=== PATIENT | male | born 1965 | race Caucasian/White ===

== ENCOUNTER 2021-05-18 12:59 | Outpatient (CLI) | payer BC ==
[2021-05-18 14:52] LABS: Bilirubin Neg (Negative); Blood, Urine Negative (Negative); Clarity Clear (Clear); Glucose, Urine (Dipstick) 100 mg/dL (Negative); Ketone, Urine Negative (Negative); Leukocyte Negative (Negative); Nitrite Negative (Negative); Protein, Urine (Dipstick) 30 mg/dl (Neg-Trace); Urobilinogen Normal mg/dL (Less than 2)
[2021-05-18 15:01] LABS: Bacteria/HPF Rare-Few HPF (None Seen); RBC/HPF 0-3 HPF (0-3); Squamous Epithelial 0-3 HPF (0-3); WBC/HPF 0-3 HPF (0-3)
[2021-05-18 15:07] LABS: INR-International Normal Ratio 0.9; Prothrombin Time 10.5 sec (9.5-12.1)
[2021-05-18 15:13] LABS: Anion Gap 15 mmol/L (10-20); BUN (Urea Nitrogen) 11 mg/dL (8.4-25.7); Calc. Creatinine Clearance 0 mL/min (70-130); Carbon Dioxide 26 mmol/L (22-29); Chloride 103 mmol/L (98-107); Glucose 125 mg/dL (70-105); Potassium 4.8 mmol/L (3.5-5.1); Sodium 139 mmol/L (136-145)
[2021-05-18 15:36] LABS: #Basophils 0.1 10x3/uL (0.0-0.2); #Eosinphils 0.4 10x3/uL (0.0-0.5); #Monocytes 0.6 10x3/uL (0.0-1.1); #Neutrophils 4.1 10x3/uL (1.5-8.4); %Basophils 0.9 % (0.0-2.0); %Lymphocytes 31.4 % (18.0-47.0); %Monocytes 8.3 % (0.0-10.0); %Neutrophils 53.9 % (40.0-75.0); Hemoglobin 15.1 g/dL (13.5-17.5); Mean Corpuscular HGB CONC 33.3 g/dL (32.0-36.0); Mean Corpuscular Hemoglobin 30.4 pg (27.0-33.0); Mean Corpuscular Volume 91.3 fl (81.2-95.1); Mean Platelet Volume 9.7 fl (7.4-10.4); Platelet Count 244 10x3/uL (150-450); RBC Distribution Width 11.5 % (11.5-14.5); Red Blood Cell (RBC) Count 4.96 10x6/uL (4.32-5.72); White Blood Cell (WBC) Count 7.6 10x3/uL (3.5-10.5)
[2021-05-19 00:37] LABS: SARS-CoV-2 PCR by NAA Not Detected (NotDetected)
== END 2021-05-18 13:00 | disposition home or self-care (01) ==
LOC: LABBT 12:59
PROVIDERS: ATTEND Orthopaedic Surgery
DX: Z01.818 Encounter for other preprocedural examination (principal); M17.0 Bilateral primary osteoarthritis of knee; Z20.822 Contact with and (suspected) exposure to COVID-19
CPT/HCPCS: 80048; 81001; 85025; 85610; 86850; 86900; 86901; 87081; 93005; 93010; U0003; U0005

== ENCOUNTER 2021-05-23 08:43 | Day surgery (SDC) | payer BC ==
[2021-05-18 14:52] LABS: Bilirubin Neg (Negative); Blood, Urine Negative (Negative); Clarity Clear (Clear); Glucose, Urine (Dipstick) 100 mg/dL (Negative); Ketone, Urine Negative (Negative); Leukocyte Negative (Negative); Nitrite Negative (Negative); Protein, Urine (Dipstick) 30 mg/dl (Neg-Trace); Urobilinogen Normal mg/dL (Less than 2)
[2021-05-18 15:01] LABS: Bacteria/HPF Rare-Few HPF (None Seen); RBC/HPF 0-3 HPF (0-3); Squamous Epithelial 0-3 HPF (0-3); WBC/HPF 0-3 HPF (0-3)
[2021-05-18 15:07] LABS: INR-International Normal Ratio 0.9; Prothrombin Time 10.5 sec (9.5-12.1)
[2021-05-18 15:13] LABS: Anion Gap 15 mmol/L (10-20); BUN (Urea Nitrogen) 11 mg/dL (8.4-25.7); Calc. Creatinine Clearance 0 mL/min (70-130); Carbon Dioxide 26 mmol/L (22-29); Chloride 103 mmol/L (98-107); Glucose 125 mg/dL (70-105); Potassium 4.8 mmol/L (3.5-5.1); Sodium 139 mmol/L (136-145)
[2021-05-18 15:36] LABS: #Basophils 0.1 10x3/uL (0.0-0.2); #Eosinphils 0.4 10x3/uL (0.0-0.5); #Monocytes 0.6 10x3/uL (0.0-1.1); #Neutrophils 4.1 10x3/uL (1.5-8.4); %Basophils 0.9 % (0.0-2.0); %Lymphocytes 31.4 % (18.0-47.0); %Monocytes 8.3 % (0.0-10.0); %Neutrophils 53.9 % (40.0-75.0); Hemoglobin 15.1 g/dL (13.5-17.5); Mean Corpuscular HGB CONC 33.3 g/dL (32.0-36.0); Mean Corpuscular Hemoglobin 30.4 pg (27.0-33.0); Mean Corpuscular Volume 91.3 fl (81.2-95.1); Mean Platelet Volume 9.7 fl (7.4-10.4); Platelet Count 244 10x3/uL (150-450); RBC Distribution Width 11.5 % (11.5-14.5); Red Blood Cell (RBC) Count 4.96 10x6/uL (4.32-5.72); White Blood Cell (WBC) Count 7.6 10x3/uL (3.5-10.5)
[2021-05-19 00:37] LABS: SARS-CoV-2 PCR by NAA Not Detected (NotDetected)
[2021-05-20 11:39] VITALS: BMI 31.0
[2021-05-23] MEDS ORDERED: Vancomycin 1.5 GRAM/300 ML BAG 1.5 GM in Premix Bag 1 BAG IVPB SCH ×2 (09:15→22:00)
[2021-05-23] MEDS ORDERED: Sodium Chloride 0.9% 100 ML ONE (09:21)
[2021-05-23] MEDS ORDERED: Tranexamic Acid 1,000 MG/10 ML VIAL ONE ×2 (09:21→13:46)
[2021-05-23] MEDS ORDERED: Fentanyl 100 MCG/2 ML VIAL ONE ×4 (11:05→16:04)
[2021-05-23] MEDS ORDERED: Midazolam HCl 2 mg/2 ml Vial ONE (11:05)
[2021-05-23] MEDS ORDERED: Bupivacaine PF 0.5% 30 ML VIAL ONE (11:24)
[2021-05-23] MEDS ORDERED: Lidocaine 1% (PF) 30 ML VIAL ONE (11:24)
[2021-05-23] MEDS ORDERED: methylPREDNISolone Acetate 40 mg/ml Vial ONE (11:24)
[2021-05-23] MEDS ORDERED: Rocuronium Bromide 10 MG/ML (10ML VIAL) ONE (11:37)
[2021-05-23] MEDS ORDERED: Ondansetron PF 4 MG/2 ML Vial ONE (11:37)
[2021-05-23] MEDS ORDERED: Ketorolac Tromethamine 30 MG/ML VIAL ONE (11:37)
[2021-05-23] MEDS ORDERED: PROPOFOL 200 MG/20 ML VIAL ONE (11:37)
[2021-05-23] MEDS ORDERED: Ropivacaine 2% HCl/PF (20 MG/10 ML VIAL) ONE (11:37)
[2021-05-23] MEDS ORDERED: Bupivacaine HCl 0.5%/Epinephrine 1:200,000/PF 30 ml Vial ONE (11:37)
[2021-05-23] MEDS ORDERED: Fentanyl 100 MCG/2 ML VIAL SLOW IVP PRN (13:11)
[2021-05-23] MEDS ORDERED: HYDROcodone/Acetaminophen 10/325 mg Tablet PO PRN (13:15)
[2021-05-23] MEDS ORDERED: traMADol HCl 50 MG TAB PO PRN ×2 (13:15)
[2021-05-23] MEDS ORDERED: Promethazine HCl 25 MG/ML VIAL IM PRN ×3 (13:15→13:44)
[2021-05-23] MEDS ORDERED: Ondansetron PF 4 MG/2 ML Vial IVP PRN ×2 (13:15→13:32)
[2021-05-23] MEDS ORDERED: Zolpidem Tartrate 5 MG TAB PO PRN ×2 (13:15→13:32)
[2021-05-23] MEDS ORDERED: Ropivacaine HCl/PF 250 ML in Premix Bag 1 BAG NERVE BLCK SCH (13:15)
[2021-05-23] MEDS ORDERED: Acetaminophen 325 MG TAB PO PRN (13:32)
[2021-05-23] MEDS ORDERED: diphenhydrAMINE 25 MG CAP PO PRN (13:32)
[2021-05-23] MEDS ORDERED: Promethazine HCl 25 MG/ML VIAL IVPB PRN (13:44)
[2021-05-23] MEDS ORDERED: Ondansetron HCl/PF 4 MG/2 ML Vial IVP PRN (13:44)
[2021-05-23] MEDS ORDERED: Tranexamic Acid 1,000 MG in Sodium Chloride 0.9% 100 ML IVPB SCH (13:45)
[2021-05-23] MEDS: Sodium Chloride 0.9% 1,000 ML IV SCH ×2 (17:37→23:03)
[2021-05-23] MEDS ORDERED: CEFAZOLIN 2 GM in Premix Bag 1 BAG IVPB SCH (18:00)
[2021-05-23] MEDS: Ketorolac Tromethamine 30 MG/ML VIAL IVP SCH ×2 (18:27→23:32)
[2021-05-23] MEDS: Atorvastatin Calcium 20 MG TAB PO SCH (20:23)
[2021-05-23] MEDS: Aspirin 81 mg Enteric Coated Tablet PO SCH (20:23)
[2021-05-23] MEDS: CEFAZOLIN 2 GM in Premix Bag 1 BAG IVPB SCH (20:24)
[2021-05-23] MEDS: HYDROcodone/Acetaminophen 10/325 mg Tablet PO PRN (22:12)
[2021-05-24] MEDS: Ketorolac Tromethamine 30 MG/ML VIAL IVP SCH ×4 (05:30→23:10)
[2021-05-24] MEDS: CEFAZOLIN 2 GM in Premix Bag 1 BAG IVPB SCH (05:30)
[2021-05-24 05:53] LABS: Hemoglobin 12.3 g/dL (14.0-18.0); Mean Corpuscular Hemoglobin 31.9 pg (27.0-31.0); Mean Corpuscular Volume 93.7 fL (78.0-98.0); Mean Platelet Volume 7.3 fL (7.4-10.4); Platelet Count 222 thou/uL (130-400); RBC Distribution Width 10.8 % (11.5-14.5); Red Blood Cell (RBC) Count 3.85 mill/uL (4.70-6.10); White Blood Cell (WBC) Count 11.6 thou/uL (4.8-10.8)
[2021-05-24] MEDS: Aspirin 81 mg Enteric Coated Tablet PO SCH ×2 (08:05→21:01)
[2021-05-24] MEDS: Losartan 25 MG TAB PO SCH (08:05)
[2021-05-24] MEDS: Multivitamin W/ Minerals 1 TAB PO SCH (08:05)
[2021-05-24] MEDS: Senokot S 8.6-50 MG TAB PO SCH ×2 (08:05→21:01)
[2021-05-24] MEDS: Ferrous Gluconate 324 MG TAB PO SCH ×2 (08:05→17:07)
[2021-05-24] MEDS: Sodium Chloride 0.9% 1,000 ML IV SCH ×2 (08:06→22:16)
[2021-05-24] MEDS: glipiZIDE 5 MG TAB PO SCH (08:07)
[2021-05-24] MEDS: Atorvastatin Calcium 20 MG TAB PO SCH (21:01)
[2021-05-24] MEDS: HYDROcodone/Acetaminophen 10/325 mg Tablet PO PRN (23:58)
[2021-05-25] MEDS: Sodium Chloride 0.9% 1,000 ML IV SCH (03:40)
[2021-05-25] MEDS: HYDROcodone/Acetaminophen 10/325 mg Tablet PO PRN ×2 (03:41→08:59)
[2021-05-25] MEDS: Ketorolac Tromethamine 30 MG/ML VIAL IVP SCH (06:20)
[2021-05-25 06:43] LABS: Mean Corpuscular HGB CONC 35.4 g/dL (32.0-36.0); Mean Corpuscular Hemoglobin 33.5 pg (27.0-31.0); Mean Corpuscular Volume 94.6 fL (78.0-98.0); Mean Platelet Volume 7.5 fL (7.4-10.4); Platelet Count 195 thou/uL (130-400); RBC Distribution Width 10.9 % (11.5-14.5); Red Blood Cell (RBC) Count 3.28 mill/uL (4.70-6.10); White Blood Cell (WBC) Count 11.3 thou/uL (4.8-10.8)
[2021-05-25] MEDS: Ferrous Gluconate 324 MG TAB PO SCH (09:00)
[2021-05-25] MEDS: Aspirin 81 mg Enteric Coated Tablet PO SCH (09:00)
[2021-05-25] MEDS: glipiZIDE 5 MG TAB PO SCH (09:01)
[2021-05-25] MEDS: Multivitamin W/ Minerals 1 TAB PO SCH (09:01)
[2021-05-25] MEDS: Losartan 25 MG TAB PO SCH (09:01)
[2021-05-25] MEDS: Senokot S 8.6-50 MG TAB PO SCH (09:04)
[2021-05-25 09:12] VITALS: BP 125/84; TEMP 97.8
== END 2021-05-25 11:05 | disposition home or self-care (01) ==
LOC: SDC 08:43 → SURG A 13:32 → SDC 05-25 11:05
PROVIDERS: ATTEND Orthopaedic Surgery
DX: M17.0 Bilateral primary osteoarthritis of knee (principal); I10 Essential (primary) hypertension; F17.290 Nicotine dependence, other tobacco product, uncomplicated; Z79.84 Long term (current) use of oral hypoglycemic drugs; Z79.899 Other long term (current) drug therapy
CPT/HCPCS: 36415; 36416; 80048; 81001; 85025; 85027; 85610; 86850; 86900; 86901; C1713; C1776; J0690; J1885; J2001; J2250; J2405; J2704; J2795; J2920; J3010; J3370; J3490; S0020; U0003; U0005

== ENCOUNTER 2021-05-31 12:17 | Emergency (ER) | payer BC ==
[~2021-05-31 12:17] MED LIST: Iopamidol-370 76% 500 ML 1 ML ONE
[2021-05-31] MEDS ORDERED: Dicyclomine 20 MG TAB ONE (15:30)
[2021-05-31] MEDS ORDERED: Lidocaine Viscous Sol 2% 15 ml UD Cup ONE (15:31)
[2021-05-31] MEDS ORDERED: Mag-Al 1200 mg/1200 mg/30 ML UDCUP ONE (15:31)
[2021-05-31] MEDS ORDERED: Ondansetron PF 4 MG/2 ML Vial ONE (17:24)
[2021-05-31] MEDS ORDERED: Ketorolac Tromethamine 30 MG/ML VIAL ONE (17:30)
== END 2021-05-31 18:28 | disposition home or self-care (01) ==
LOC: ERS 12:17
DX: I26.99 Other pulmonary embolism without acute cor pulmonale (principal); R10.13 Epigastric pain; R11.0 Nausea; I10 Essential (primary) hypertension; E11.9 Type 2 diabetes mellitus without complications; F17.220 Nicotine dependence, chewing tobacco, uncomplicated; Z79.82 Long term (current) use of aspirin; Z79.84 Long term (current) use of oral hypoglycemic drugs; Z79.899 Other long term (current) drug therapy
CPT/HCPCS: 71275; 87045; 87046; 87427; 87449; 96372; 96374; 96375; J0500; J1885; J2405; Q9967